=== PATIENT | male | born 2000 | race Two or more races ===

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

== ENCOUNTER 2019-02-03 20:43 | Emergency (ER) | payer MEDICAID | END 2019-02-03 21:11 | disposition left against medical advice (07) | LOC: C.ER 20:43 | DX: Z02.89 Encounter for other administrative examinations (principal); R51 Headache ==